=== PATIENT | male | born 1960 | race African-American/Black ===

== ENCOUNTER 2020-11-11 18:11 | Emergency (ER) | payer MEDICAID ==
[~2020-11-11] VITALS: Ht 182.9 cm; Wt 113.0 kg
[2020-11-11] MEDS ORDERED: SODIUM CHLORIDE 0.9% 1,000 ML IV ONE (19:00)
[2020-11-11] MEDS ORDERED: PANTOPRAZOLE SODIUM 40 MG/VIAL IV ONE (19:00)
[2020-11-11 19:31] LABS: BASOPHILS % 0.3 % (0.0-2.0); EOSINOPHILS % 3.6 % (0.0-5.0); HEMATOCRIT. 36.3 % (42.0-52.0); HEMOGLOBIN. 12.3 g/dL (14.0-18.0); LYMPHOCYTES % 17.3 % (20.0-50.0); MEAN CORPUSCULAR HEMOGLOBIN 29.7 pg (28.0-32.0); MEAN CORPUSCULAR VOLUME 87.5 fL (80.0-94.0); MEAN PLATELET VOLUME 7.3 fl (7.4-10.4); MONOCYTES % 8.1 % (2.0-8.0); NEUTROPHILS % 70.7 % (40.0-76.0); PLATELET 227 x1000/uL (130-400); RED BLOOD CELL COUNT 4.15 mill/uL (4.7-6.1); RED CELL DISTRIBUTION WIDTH 13.6 % (11.6-14.6)
[2020-11-11 19:38] LABS: CHLORIDE 108 mEq/L (98-107)
[2020-11-11 19:46] LABS: INR 1.2; PROTHROMBIN TIME 12.4 sec (9.6-11.0)
[2020-11-11] MEDS ORDERED: IOHEXOL-300 100 ML BOTTLE ONE (23:22)
[2020-11-12 07:10] VITALS: BP 127/79
== END 2020-11-12 07:30 | disposition left against medical advice (07) ==
LOC: ER 18:11 → CANBEDREQ 11-12 09:27
DX: K92.2 Gastrointestinal hemorrhage, unspecified (principal); K21.9 Gastro-esophageal reflux disease without esophagitis; I10 Essential (primary) hypertension
CPT/HCPCS: 36415; 74177; 80053; 83605; 83690; 85025; 85610; 86850; 86900; 86901; 93005; 96361; 96374; 99285; C9113; J7030; Q9967

== ENCOUNTER 2022-05-27 22:21 | Emergency (ER) | payer MEDICAID ==
[~2022-05-27] VITALS: Ht 188 cm; Wt 87.0 kg
[2022-05-28 02:12] VITALS: BP 147/81
== END 2022-05-28 02:18 | disposition home or self-care (01) ==
LOC: ER 22:21
DX: T51.91XA Toxic effect of unspecified alcohol, accidental (unintentional), initial encounter (principal); Y92.9 Unspecified place or not applicable; I10 Essential (primary) hypertension
CPT/HCPCS: 99283